=== PATIENT | female | born 1975 | race Caucasian/White ===

== ENCOUNTER 2018-12-02 06:08 | Day surgery (SDC) | payer BC, OTHER ==
[~2018-12-02] VITALS: Ht 149.9 cm; Wt 71.4 kg
--- NOTE | 2018-12-02 07:27 | PREAC ---
Date/Time of Note Date/Time of Note DATE: 12/02/18 TIME: 07:21 Anesthesia Eval and Record Evaluation Time Pre-Procedure Interview DATE: 12/02/18 TIME: 07:21 Age 43 Sex female NPO: 8 hrs Preoperative diagnosis abdominal pain Planned procedure colonoscopy and EGD Past Medical History Past Medical History: Includes Cardio: Dyslipidemia Endo: Diabetes (BG 90) Hepatic: Other (enlarged liver) Surgery & Anesthesia Issues No known issue Meds Anticoagulation: No Beta Jonah within 24 hr: No Reason Beta Jonah not given: Pt. not on B-Jonah Meds reviewed: Yes Allergies Allergies Reviewed: Yes Labs/Studies Labs Reviewed: Other (none) test: Negative Pre-procedure Exam Airway: Adequate mouth opening, Adequate thyromental dist Mallampati: Mallampati II Teeth: Normal Lung: Normal Heart: Normal ASA Physical Status ASA physical status: 2 Emergency: None Planned Anesthetic General/MAC: MAC Pre-operative Attestations Prior to commencing anesthesia and surgery, the patient was re-evaluated, there was verification of: *The patient's identity *The results of appropriate recent lab work and preoperative vital signs *The above evaluation not changing prior to induction *Anesthetic plan, risk benefits, alternative and complications discussed with patient/family; questions answered; patient/family understands, accepts and wishes to proceed. TEGAN MCCLENDON CRNA Dec 02, 2018 07:27
[2018-12-02 07:32] VITALS: Ht 149.9 cm; Wt 71.4 kg
[2018-12-02 07:37] VITALS: BP 130/72; PULSE 58; RESP 18
[2018-12-02] MEDS ORDERED: SIMV5TAB14 PO (07:37)
[2018-12-02] MEDS ORDERED: METF-849 PO (07:37)
--- NOTE | 2018-12-02 08:08 | PAC ---
Date/Time of Note Date/Time of Note DATE: 12/02/18 TIME: 08:08 Post-Anesthesia Notes Post-Anesthesia Note Last documented vital signs BP 100/65, 65, 100%, 12 Activity: WNL Respiratory function: WNL Cardiovascular function: WNL Mental status: Baseline Pain reasonably controlled: Yes Hydration appropriate: Yes Nausea/Vomiting absent: Yes TEGAN MCCLENDON CRNA Dec 02, 2018 08:08
[2018-12-02] MEDS ORDERED: LIDOCAINE 2% (SDV) 5 ML INJ ONE (08:10)
[2018-12-02] MEDS ORDERED: PROPOFOL 40 ML ONE (08:10)
[2018-12-02] MEDS ORDERED: OXYCODONE/ACETAMINOPHEN (5/325) TAB PO PRN ×2 (08:30)
[2018-12-02] MEDS ORDERED: MEPERIDINE 25 MG INJ IV PRN (08:30)
[2018-12-02] MEDS ORDERED: FENTAnyl 50 MCG/ML VIAL IV PRN ×2 (08:30)
[2018-12-02] MEDS ORDERED: LABETALOL HCL 20MG INJ IV PRN (08:30)
[2018-12-02] MEDS ORDERED: ONDANSETRON 4 MG INJ IV PRN (08:30)
[2018-12-02 08:36] VITALS: BP 111/66; PULSE 62
== END 2018-12-02 14:12 | disposition home or self-care (01) ==
LOC: GIL 06:08
PROVIDERS: ATTEND Internal Medicine Gastroenterology
DX: K64.9 Unspecified hemorrhoids (principal); K29.50 Unspecified chronic gastritis without bleeding; Z86.010 Personal history of colon polyps; K20.8 Other esophagitis; E11.9 Type 2 diabetes mellitus without complications; E78.5 Hyperlipidemia, unspecified
CPT/HCPCS: 43239; 45378; 82962; 84703; 88305; 88312; Z7610